=== PATIENT | male | born 1990 | race Two or more races ===

== ENCOUNTER 2020-05-17 14:57 | Outpatient (CLI) | payer OTHER ==
--- NOTE | 2020-05-17 16:07 | SLEEP CARE CONSULTATION ---
Information from patient questionnaire entered by Fior Fraire. I have reviewed and concur with the information entered by Fior Fraire. This document represents the service I personally performed and the decisions made by me, America Monsalve ARNP. History of Present Illness Service Date and Time: 05/17/2020 0870 Reason for Visit: New patient Chief Complaint: reports: Unrefreshed sleep, Snoring, Excessive daytime sleepiness, Observed pauses in breathing, Fatigue, Other (headaches when waking up) Date of Onset: 2.5 years Usual bedtime: Depends on work schedule Time it takes to fall asleep: 5-10 min Snores at night: Yes Observed to quit breathing while asleep: Yes Sleeps alone due to snoring: Yes Number of times waking at night: 5 times or more per week Reasons for waking at night: reports: Snoring, Other (lack of air; he has to sleep with a fan blowing on his face) Toss, Turn, or Twitch while sleeping: Yes Recalls having dreams: Yes Usually gets out of bed at: 0630 if on regular schedule Feels refreshed in the morning: No Morning headache: Yes (5 times a week or more, lasting about an hour) Sleepy or fatigued during the day: Yes Ever fallen asleep while driving: No Takes day naps: Yes (daily) Dreams during day naps: Yes Prior sleep studies: No Additional HPI information: I had the pleasure of seeing ZAN LANGLEY today regarding the possibility of him having a sleep disorder. His current complaints are snoring, pauses in breathing at night, unrefreshed sleep, daytime sleepiness, fatigue and headaches when waking up. He has been told he has a really loud snore by others on ship. He has been told the snore is getting loud and that he had had some pauses in breathing. His has noted these things too. In the last year there has been more incidences of getting up many times during the night. He is waking up with headaches and is not feeling rested. He would like to take a nap in early mornings. He is on a rotating schedule right now with his position. He has to get a nap during the day or he cannot function. He sometimes feels some restlessness in his legs and whole body too. He feels he has to move if he stays still too long. 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 Patient is and lives in [place]. Have you smoked in the past 12 months: No Alcohol use: No Caffeine use: Yes Caffeine amount and frequency: Daily Family History Family history of sleep disordered breathing: No Allergies and Home Medications Drug allergies reviewed: Yes (NKDA) Home medication list reviewed: Yes Allergy and home medication list: Omeprazole Review of Systems Weight gain over past 5 years: 39 Cardiovascular: reports: high blood pressure Gastrointestinal: reports: heartburn Neurological: reports: headaches Psychiatric: denies: anxiety, depression Ear/Nose/Throat: reports: nasal congestion. denies: sinus problems, dry mouth/throat, tonsillectomy, wisdom teeth removed (never grew wisdom teeth in) Endocrine: reports: sluggishness (tired) Immunologic: denies: allergies to food or environment Physical Exam Blood Pressure: 128/88 Cuff size: wrist Heart Rate: 96 O2 Saturation: 98 Height: 5 ft 10 in Weight: 209 lb Body Mass Index: 29.9 BMI Classification: Overweight Neck circumference: 16.5 (inches) Nostrils: partially obstructed Mouth and throat: narrow oropharynx Soft palate: long Uvula: normal Uvula visualization: 50% Mallampati Class II Tongue: enlarged in size with teeth bragg on lateral edges Tonsils: 2+ Chin and jaw: normal size and position Neck: normal w/o lymphadenopathy or thyromegaly Heart: regular rate and rhythm Lungs: clear bilaterally Impression and Plan 1. Suspected Obstructive Sleep Apnea-Hypopnea Syndrome, as suggested by a history of loud and irregular snoring, observed cessation of breath while asleep, morning headache, frequent awakening during the night, unrefreshed sleep, cognitive impairment, and excessive daytime sleepiness. Narrow oropharynx and obesity are common predisposing factors for obstructive sleep apnea-hypopnea syndrome. I recommend proceeding to polysomnography to confirm the diagnosis and to assess severity. If the patient has significant sleep disordered breathing, a manual CPAP titration study will also be performed to find the optimal treatment pressure. I informed the patient of what the sleep studies involve and after some discussion, obtained agreement to proceed. The pathophysiology of obstructive sleep apnea-hypopnea syndrome was discussed with the patient and health risks of cardiovascular and cerebrovascular disease if not treated. Risks of drowsy driving discussed in detail and patient advised to avoid long distance driving and to felt puller at the first sign of drowsiness. Patient agreed to plan. * Schedule polysomnography +- manual CPAP titration study and return in 1-2 weeks after the study to discuss result and initiate therapy. * Avoid long distance driving or driving when feeling sleepy. * Avoid alcohol, sedative and muscle relaxant around bedtime. * Attempt to lose weight. * Review instructions provided by trained office staff on how to prepare for the sleep study. * Return for follow-up after sleep study completed. Counseling Topics: Weight loss health impact Visit Type: In Office Time Spent with Patient (minutes): 30 Provider Statement: I spent 100% of the Face to Face Visit with the patient with greater than 50% spent counseling the patient and coordination of care.
[2020-05-17 16:08] VITALS: BP 128/88
== END 2020-05-17 14:58 | disposition home or self-care (01) ==
LOC: SC 14:57
PROVIDERS: ATTEND Nurse Practitioner Family
DX: G47.10 Hypersomnia, unspecified (principal); R51.9 Headache, unspecified; R06.83 Snoring; G47.8 Other sleep disorders; R06.81 Apnea, not elsewhere classified; E66.3 Overweight; Z68.29 Body mass index [BMI] 29.0-29.9, adult; R41.89 Other symptoms and signs involving cognitive functions and awareness
CPT/HCPCS: 99203; 99212

== ENCOUNTER 2020-06-10 09:21 | Outpatient (CLI) | payer OTHER | END 2020-06-10 09:22 | disposition home or self-care (01) | LOC: SC 09:21 | PROVIDERS: ATTEND Nurse Practitioner Family | DX: G47.33 Obstructive sleep apnea (adult) (pediatric) (principal); R09.02 Hypoxemia; E66.9 Obesity, unspecified; Z68.30 Body mass index [BMI] 30.0-30.9, adult | CPT/HCPCS: 95806 ==

== ENCOUNTER 2020-06-30 07:53 | Outpatient (CLI) | payer OTHER ==
--- NOTE | 2020-06-30 08:42 | SLEEP CARE CONSULTATION ---
Information from patient questionnaire entered by Loli Vincent. I have reviewed and concur with the information entered by Loli Vincent. This document represents the service I personally performed and the decisions made by , America Monsalve ARNP. History of Present Illness Service Date and Time: 06/30/2020 0753 Initial [place] Sleepiness Scale score: 13 (in 2020) Current [place] Sleepiness Scale score: 10 Additional HPI information: ZAN LANGLEY returns for follow up and results of the recently performed home sleep study. I explained the pathophysiology behind obstructive sleep apnea. We then spent quite a bit of time discussing different treatment options. For mild obstructive sleep apnea, surgery and oral appliance are alternatives to nasal CPAP therapy but in moderate or severe cases, nasal CPAP is the most effective and reliable treatment. Because apnea is primarily in supine position, then positional management therapy could be effective. Methods discussed such as positioning with pillows, using a T-shirt with tennis balls in the back, and shown commercial products that have a pillow format on back to prevent supine sleep. I reviewed the impact of weight changes on sleep apnea and strongly recommended losing weight. After some discussion, the patient opted to go with the nasal CPAP therapy. Nasal autoCPAP set at 4-15 cmH20 will be ordered with rationale explained. A manual titration study will be ordered if unable to find optimal pressure with office adjustments. I explained how CPAP machine works with sample devices Respironics Dreamstation and [employer]iversity [id number] and what to expect when using the machine. Using CPAP every night in order to get used to it was emphasized. Patient advised to put CPAP mask on before getting into bed so as not to fall asleep without CPAP. To assist acclimation to CPAP use, it could also be used for a short time during day while reading or watching TV. The patient was instructed to call the CPAP supplier to discuss any mechanical problem that may occur. If the mask given is uncomfortable or is difficult to keep on through the night even with adjustment, contact the CPAP supplier as many will replace with another mask style if notified before 30 days. If snoring or perceives is not getting enough air or too much air from the machine, notify this office. [facility] patient education PAP tips reviewed and given to patient. Patient counseled not drink alcohol less than 4 hours before bedtime as it can increase snoring and apnea. Patient was cautioned about risks of drowsy driving until sleepiness symptoms resolve. Sleep Study - Results Type of Sleep Study: Home sleep study Prior sleep studies: No Polysomnography/Home Sleep Study results: Physician Impression: The quality of the study is good. The length of the study is adequate (> 240 minutes). Please also see the tabulated and graphic data. 1. Obstructive Sleep Apnea-Hypopnea (ICD-10 G47.33), severe, with an AHI of 33.8 /hr and sandro SaO2 of 72%. During the study, the patient had 126 apneas (126 obstructive, 0 central, 0 mixed) and 110 hypopneas. The longest episode lasted 58.5 seconds. The respiratory events occurred more frequently during supine sleep (supine AHI was 55.3 and non-supine, 29.80). 2. Hypoxemia (ICD-10 R09.02), moderate, with the lowest oxygen saturation of 72 % and 40.7 minutes with SaO2 under 90%. Baseline oxygen saturation was normal (Average oxygen saturation was 94%). Allergies and Home Medications Home medication list reviewed: Yes (no new meds) Review of Systems Review of systems same as previous: Yes (no changes) Physical Exam Heart Rate: 73 O2 Saturation: 98 Height: 5 ft 10 in Weight: 209 lb Body Mass Index: 29.9 BMI Classification: Overweight Impression and Plan 1. Obstructive Sleep Apnea-Hypopnea Syndrome, severe, with lowest oxygen saturation of 72%. Obviously this is the cause of the patients symptoms of unrefreshed sleep, and excessive daytime sleepiness. Positive pressure therapy could benefit gastric reflux. As mentioned above, the patient will be started on nasal autoCPAP therapy with pressure set at 4-15 cmH2O. A manual titration study will be completed if unable to find optimal treatment pressure with office adjustments. Compliance guidelines also reviewed. A copy of compliance guidelines will be given for reference at check out. Because the apnea is more severe supine, I instructed to avoid sleeping supine using pillow positioning until able to start CPAP use. * Nasal auto CPAP therapy, pressure at 4-15 cm H2O. * Attempt to lose weight. * Avoid alcohol consumption near bedtime. * Avoid supine sleep until using CPAP. * The patient is again cautioned about driving until sleepiness completely resolves. * Return one month after CPAP obtained. I will assess response to therapy and compliance at that time. Counseling Topics: Weight loss health impact Visit Type: In Office Time Spent with Patient (minutes): 20 Provider Statement: I spent 100% of the Face to Face Visit with the patient with greater than 50% spent counseling the patient and coordination of care.
== END 2020-06-30 07:54 | disposition home or self-care (01) ==
LOC: SC 07:53
PROVIDERS: ATTEND Nurse Practitioner Family
DX: G47.33 Obstructive sleep apnea (adult) (pediatric) (principal); E66.3 Overweight; Z68.29 Body mass index [BMI] 29.0-29.9, adult
CPT/HCPCS: 99212; 99213

== ENCOUNTER 2020-08-23 07:57 | Outpatient (CLI) | payer OTHER ==
--- NOTE | 2020-08-23 08:40 | SLEEP CARE CONSULTATION ---
Information from patient questionnaire entered by Loli Vincent. I have reviewed and concur with the information entered by Loli Vincent. This document represents the service I personally performed and the decisions made by , America Monsalve ARNP. History of Present Illness Service Date and Time: 08/23/2020 0757 Previous diagnosis: Severe, Obstructive Sleep Apnea-Hypopnea Syndrome AHI: 33.8 (in 2020) Reason for follow up: first compliance Equipment type: CPAP Equipment obtained from: [employer] (got initial supplies) Mask style: Nasal Mask brand: Resmed (N20) Backup mask available: No (will keep old mask when replaced) Last cushion change: 2 weeks Prior sleep studies: Yes Year and Where: 2020 - [facility] Type of Sleep Study: Home sleep study HPI additional information: ZAN LANGLEY was diagnosed to have severe, AHI 33.8, obstructive sleep apnea-hypopnea syndrome and returned today for CPAP therapy first compliance follow-up. CPAP Compliance Data - Data Reviewed with Patient Average duration of nightly device use: 4 hr 45 min Compliance rate %: 67 (70 for initial 30 days) Current pressure setting (cmH2O): 4-15 (median 6.6, avg 9.9, max 11.4) Humidity settin Average residual AHI: 0.9 Subjective Missed days of use due to: reports: mask issues (changed from full mask to nasal congestion), illness Patient concerns: reports: nasal congestion (due to allergies). denies: aerophagia, mask discomfort, air blowing in eyes, mask leak noise, condensation in mask/hose, dry mouth, nose, throat, epistaxis, other Observed to snore while using device: No Current pressure setting perceived as: comfortable On therapy, patient: reports: sleeping better, awakening more refreshed, being more awake and alert during the day, more rested overall. denies: drowsiness while driving Initial [place] Sleepiness Scale score: 13 (in 2020) Current [place] Sleepiness Scale score: 7 Allergies and Home Medications Home medication list reviewed: Yes (no new meds) Review of Systems Review of systems same as previous: Yes (no changes) Physical Exam Heart Rate: 80 O2 Saturation: 99 Height: 5 ft 10 in Weight: 210 lb Body Mass Index: 30.1 BMI Classification: Obese Impression and Plan 1. Obstructive Sleep Apnea-Hypopnea Syndrome, severe, with fair treatment compliance and excellent apnea control. On CPAP therapy, the patient has better sleep quality and is more rested overall. He started with a full face mask but it felt very suffocating to him and he changed to a nasal cushion ResMed N20 which he find comfortable. He states he is very satisfied because his schedule for work varies and he is unable to get more than 4-5 hours of sleep and with using the CPAP he is not waking up feeling like he has had quality sleep and is rested. He had a few nights that were difficult due to nasal congestion from his allergies. Nasal congestion can be reduced with increasing the CPAP humidity. The heated hose can be adjusted higher if condensation with higher humidity setting. Saline nasal spray found OTC can be used prior to CPAP to clear nasal secretions and wash off any nasal allergens to facilitate nasal breathing. In addition, a steamy shower before bed will often assist nasal drainage. He voiced understanding and agreement with plan of care. Patient's apnea severity and rationale for treatment to reduce apnea, improve sleep quality and reduce cardiovascular and cerebrovascular events was reviewed. I also reviewed the benefit of consistent device use of CPAP for gastric reflux. * Change auto CPAP pressure to 7-11 cmH2O * Notify me if snoring with mask or feeling that the pressure is too much or too little * Attempt to lose weight * Call this office if any problems using CPAP * Return for follow up in 1-2 months, or sooner if concerns arise Counseling Topics: Spare mask, Weight loss health impact Visit Type: In Office Time Spent with Patient (minutes): 22 Provider Statement: I spent 100% of the Face to Face Visit with the patient with greater than 50% spent counseling the patient and coordination of care.
== END 2020-08-23 07:58 | disposition home or self-care (01) ==
LOC: SC 07:57
PROVIDERS: ATTEND Nurse Practitioner Family
DX: G47.33 Obstructive sleep apnea (adult) (pediatric) (principal); E66.9 Obesity, unspecified; Z68.30 Body mass index [BMI] 30.0-30.9, adult
CPT/HCPCS: 99212; 99213

== ENCOUNTER 2020-10-26 16:38 | Outpatient (CLI) | payer OTHER ==
--- NOTE | 2020-10-26 17:06 | SLEEP CARE CONSULTATION ---
Information from patient questionnaire entered by Fior Fraire. I have reviewed and concur with the information entered by Fior Fraire. This document represents the service I personally performed and the decisions made by , America Monsalve ARNP. History of Present Illness Service Date and Time: 10/26/2020 1638 Previous diagnosis: Severe, Obstructive Sleep Apnea-Hypopnea Syndrome AHI: 33.8 Reason for follow up: other (2-month followup - pressure change) Equipment type: CPAP Equipment obtained from: [employer] (getting supplies as needed) Mask style: Nasal (N30i) Mask brand: Resmed Backup mask available: No (will keep old mask when replaced) Last cushion change: 2 weeks Prior sleep studies: Yes Year and Where: 2020 - [facility] Type of Sleep Study: Home sleep study HPI additional information: ZAN LANGLEY was diagnosed to have severe, AHI 33.8, obstructive sleep apnea-hypopnea syndrome and returned today for CPAP therapy 2 month pressure change follow-up. CPAP Compliance Data - Data Reviewed with Patient Average duration of nightly device use: 6 h 40 min Compliance rate %: 90 Current pressure setting (cmH2O): 7-12 Average residual AHI: 0.9 Subjective Missed days of use due to: reports: travel Patient concerns: reports: condensation in mask/hose. denies: aerophagia, mask discomfort, air blowing in eyes, mask leak noise, nasal congestion, dry mouth, nose, throat, epistaxis, other Observed to snore while using device: No Current pressure setting perceived as: comfortable On therapy, patient: reports: sleeping better, awakening more refreshed, being more awake and alert during the day, more rested overall. denies: drowsiness while driving Initial [place] Sleepiness Scale score: 13 (in 2020) Current [place] Sleepiness Scale score: 8 Allergies and Home Medications Home medication list reviewed: Yes (no changes) Review of Systems Review of systems same as previous: No (cyst in forearm, going to have removed in Nov) Physical Exam Heart Rate: 99 O2 Saturation: 98 Height: 5 ft 10 in Weight: 218 lb Body Mass Index: 31.2 BMI Classification: Obese Impression and Plan 1. Obstructive Sleep Apnea-Hypopnea Syndrome, severe, with good treatment co mpliance and excellent apnea control. On CPAP therapy, the patient has better sleep quality and is more rested overall. Patient is very satisfied with pressure change and results from controlling his apnea. He is getting some condensation in the tubing. He has changed from the heated hose to the regular hose and it reduced for a while, but now is getting some condensation. I advised him to change back to the heated hose, increase its setting and increase humidity if needed, if he becomes dry. He voiced understanding and agreement. I will not change his pressure settings today. Patient's apnea severity and rationale for treatment to reduce apnea, improve sleep quality and reduce cardiovascular and cerebrovascular events was reviewed. I also reviewed the benefit of consistent device use of CPAP for gastric reflux. * Continue auto CPAP pressure at 7-12 cmH2O * Notify me if snoring with mask or feeling that the pressure is too much or too little * Attempt to lose weight * Call this office if any problems using CPAP * Return for follow up in 3 months, or sooner if concerns arise Counseling Topics: Spare mask, Weight loss health impact Visit Type: In Office Time Spent with Patient (minutes): 12 Provider Statement: I spent 100% of the Face to Face Visit with the patient with greater than 50% spent counseling the patient and coordination of care.
== END 2020-10-26 16:39 | disposition home or self-care (01) ==
LOC: SC 16:38
PROVIDERS: ATTEND Nurse Practitioner Family
DX: G47.33 Obstructive sleep apnea (adult) (pediatric) (principal); E66.9 Obesity, unspecified; Z68.31 Body mass index [BMI] 31.0-31.9, adult
CPT/HCPCS: 99212

== ENCOUNTER 2021-01-17 21:31 | Emergency (ER) | payer OTHER ==
--- NOTE | 2021-01-17 22:11 | ED Physician Documentation ---
PD HPI UPPER EXT INJURY - Stated complaint Stated Complaint: R HAND INJ - Chief complaint Chief Complaint: Ext Problem - History obtained from History obtained from: Patient - History of Present Illness Location: Right Type of injury: Fall Where injury occurred: Work Timing - onset: Enter time (20:45), Today Timing - details: Abrupt onset Pain level now: 4 Improved by: Rest Worsened by: Moving, Palpating Associated symptoms: Swelling. No: Weakness, Numbness Contributing factors: No: Anticoagulated Similar symptoms before: Has not had sx before - Additonal information Additional information: patient is right hand dominant. At work tonight, at approximately 8:45 PM, he slipped and fell onto concrete surface, sustained injury to right hand. He is right hand dominant. Review of Systems Skin: denies: Abrasion (s), Laceration (s) Musculoskeletal: reports: Extremity pain, Extremity swelling Neurologic: denies: Focal weakness, Numbness, Head injury PD PAST MEDICAL HISTORY - Past Medical History Past Medical History: Yes Derm: Other Other Past Medical History: acne - Past Surgical History Past Surgical History: No - Present Medications Home Medications: Ambulatory Orders Medication Instructions Recorded Confirmed Doxycycline Hyclate 100 mg PO DAILY 01/17/21 01/17/21 HYDROcod/ACETAM 5/325 [[place] 5/325] 1 - 2 tablet PO Q6H PRN #14 tablet 01/17/21 - Allergies Allergies/Adverse Reactions: Allergies Allergy/AdvReac Type Severity Reaction Status Date / Time No Known Drug Allergies Allergy Verified 01/17/21 21:44 - Social History Does the pt smoke?: No Smoking Status: Never smoker Does the pt drink ETOH?: No Does the pt have substance abuse?: No - Immunizations Immunizations are current?: Yes PD ED PE NORMAL - Vitals Vital signs reviewed: Yes - General General: Alert and oriented X 3, No acute distress, Well developed/nourished - Derm Derm: Normal color, Warm and dry - Neuro Neuro: No motor deficit, No sensory deficit PD ED PE EXPANDED - Extremities Extremities: Deformity, Tenderness, Limited ROM YODIT UE/Hands Visual: 1 - swelling, deformity, tenderness Results - Vitals Vitals: Oxygen O2 Source Room air - Rads (name of study) right hand xrays Radiology: Prelim report reviewed, See rad report Procedures - Splint (location) Upper extremity right Splint applied by: Physician, Isaac Type of splint: Fiberglass, Ulnar gutter Other: Patient tolerated well, No complications, Neurovascular intact, Good alignment, Sling provided PD MEDICAL DECISION MAKING - ED course Complexity details: considered differential, d/w patient ED course: fracture of right fifth metacarpal on xray. splint placed after linear traction for reduction. Patient declined local anesthestic (such as hematoma block). I nstructed to follow up with orthopedic surgeon. Prescription for oxycodone submitted to [facility] pharmacy.I reviewed previous information available to me on this patient (no CLAIR form) and there are no red flags that would suggest need to avoid or limit opiate prescription for this painful injury. Departure - Departure Disposition: 01 Home, Self Care Clinical Impression: Boxer's fracture Qualifiers: Encounter type: initial encounter Fracture type: closed Qualified Code(s): S62.339A - Displaced fracture of neck of unspecified metacarpal bone, initial encounter for closed fracture Condition: Good Instructions: ED Fx Boxer, ED Cast Care Fiberglass Follow-Up: Jack Dee MD [Provider Admit Priv/Credential] - JOSÉ SIMEON MD [Primary Care Provider] - Prescriptions: HYDROcod/ACETAM 5/325 [[place] 5/325] 1 - 2 tablet PO Q6H PRN #14 tablet PRN Reason: Pain Comments: Follow up with orthopedic surgery in 5-7 days. A prescription for hydrocodone with acetaminophen has been electronically submitted to [facility] pharmacy in [place] Discharge Date/Time: 01/17/21 23:57
[2021-01-17] MEDS ORDERED: LIDOCAINE 1% 2 ML VIAL SUBQ STA (22:39)
--- NOTE | 2021-01-17 22:49 | XRAY Report ---
PROCEDURE: Hand 3 View RT INDICATIONS: injury, tenderness TECHNIQUE: 3 views of the hand(s) acquired. COMPARISON: None FINDINGS: Bones: Mildly comminuted, displaced fracture involving the head of the right fifth metacarpal. There is full or angulation of the distal fracture fragment.. No suspicious bony lesions. Soft tissues: No suspicious soft tissue calcifications. Diffuse soft tissue swelling of the right h and. IMPRESSION: Minimally comminuted, displaced distal right fifth metacarpal head fracture. Reviewed by: Earl El MD on 01/17/2021 10:48 PM PDT Approved by: Earl El MD on 01/17/2021 10:48 PM PDT Station ID: [id number]
[2021-01-17] MEDS ORDERED: HYDROcod/ACET 5/325 Prepack 4 PO STA (23:31)
[2021-01-17 23:56] VITALS: BP 133/90
== END 2021-01-17 23:57 | disposition home or self-care (01) ==
LOC: ED 21:31
DX: S62.336A Displaced fracture of neck of fifth metacarpal bone, right hand, initial encounter for closed fracture (principal); W17.89XA Other fall from one level to another, initial encounter; Y99.0 Civilian activity done for income or pay
CPT/HCPCS: 29105

== ENCOUNTER 2021-01-24 07:39 | Outpatient (CLI) | payer OTHER ==
--- NOTE | 2021-01-24 15:50 | XRAY Report ---
PROCEDURE: Hand 3 View RT INDICATIONS: R HAND PX TECHNIQUE: 3 views of the hand(s) acquired. COMPARISON: Hand x-ray 01/17/2021 FINDINGS: Bones: Mildly displaced fifth metacarpal head fracture with angulation. Overall alignment is stable. No suspicious bony lesions. No appreciable interval sclerosis. Soft tissues: No suspicious soft tissue calcifications. IMPRESSION: Stable appearance of mildly angulated fifth metacarpal head fracture. Reviewed by: Sonia Lainez MD on 01/24/2021 3:49 PM [facility] Approved by: Sonia Lainez MD on 01/24/2021 3:49 PM [facility] Station ID: [id number]
== END 2021-01-24 23:59 | disposition home or self-care (01) ==
LOC: DI.N 07:39
PROVIDERS: ATTEND Orthopaedic Surgery
DX: S62.396A Other fracture of fifth metacarpal bone, right hand, initial encounter for closed fracture (principal)

== ENCOUNTER 2021-01-27 08:53 | Outpatient (CLI) | payer OTHER ==
--- NOTE | 2021-01-27 09:24 | SLEEP CARE CONSULTATION ---
Information from patient questionnaire entered by Fior Fraire. I have reviewed and concur with the information entered by Fior Fraire. This document represents the service I personally performed and the decisions made by , America Monsalve ARNP. History of Present Illness Service Date and Time: 01/27/2021 0853 Previous diagnosis: Severe, Obstructive Sleep Apnea-Hypopnea Syndrome AHI: 33.8 Reason for follow up: three month Equipment type: CPAP Equipment obtained from: [facility] (getting supplies as needed) Mask style: Nasal (N30i) Backup mask available: No (will need to keep old mask when replaced) Last cushion change: 2 weeks Prior sleep studies: Yes Year and Where: 2020 - [facility] Type of Sleep Study: Home sleep study HPI additional information: ZAN LANGLEY was diagnosed to have severe, AHI 33.8, obstructive sleep apnea-hypopnea syndrome and returned today for CPAP therapy three month follow- up. CPAP Compliance Data - Data Reviewed with Patient Average duration of nightly device use: 6 h 26 min Compliance rate %: 87 Current pressure setting (cmH2O): 7-12 Average residual AHI: 0.9 Central apnea: 0.4 Obstructive apnea: 0.3 Subjective Missed days of use due to: reports: family emergency Patient concerns: denies: aerophagia, mask discomfort, air blowing in eyes, mask leak noise, condensation in mask/hose, nasal congestion, dry mouth, nose, throat, epistaxis, other Observed to snore while using device: No Current pressure setting perceived as: comfortable On therapy, patient: reports: sleeping better, awakening more refreshed, being more awake and alert during the day, more rested overall. denies: drowsiness while driving Initial [place] Sleepiness Scale score: 13 (in 2020) Current [place] Sleepiness Scale score: 6 Allergies and Home Medications Home medication list reviewed: Yes (doxycycline for acne) Review of Systems Review of systems same as previous: No (Broken hand- 1 week ago 01-17-21) Physical Exam Blood Pressure: 111/81 Cuff size: wrist Heart Rate: 79 O2 Saturation: 97 Height: 5 ft 10 in Weight: 212 lb Body Mass Index: 30.4 BMI Classification: Obese Impression and Plan 1. Obstructive Sleep Apnea-Hypopnea Syndrome, severe, with good treatment compliance and excellent apnea control. On CPAP therapy, the patient has better sleep quality and is more rested overall. Patient is very satisfied with current CPAP therapy and has significant improvement of his sleep apnea. He has no current issues or concerns with CPAP use. Patient was advised to keep the old mask set when he gets it replaced so that he can have a backup. He voiced understanding. Patient's apnea severity and rationale for treatment to reduce apnea, improve sleep quality and reduce cardiovascular and cerebrovascular events was reviewed. I also reviewed the benefit of consistent device use of CPAP for gastric reflux. I discussed weight loss with patient. He is finding it difficult to find time to exercise to help him lose weight. I encouraged him to try to make better food choices, selecting more nutritious foods and avoiding processed and packaged foods that are high in sugar and empty calories. He may also park his car out a little further so that he can increase walking distance when he is going to work or other places. He voiced understanding and agreement with this plan. * Continue auto CPAP pressure at 7-12 cmH2O * Notify me if snoring with mask or feeling that the pressure is too much or too little * Attempt to lose weight * Call this office if any problems using CPAP * Return for follow up in 6 months, or sooner if concerns arise Counseling Topics: Spare mask, Weight loss health impact Visit Type: In Office Time Spent with Patient (minutes): 20 Provider Statement: I spent 100% of the Face to Face Visit with the patient with greater than 50% spent counseling the patient and coordination of care.
[2021-01-27 09:25] VITALS: BP 111/81
== END 2021-01-27 08:54 | disposition home or self-care (01) ==
LOC: SC 08:53
PROVIDERS: ATTEND Nurse Practitioner Family
DX: G47.33 Obstructive sleep apnea (adult) (pediatric) (principal); E66.9 Obesity, unspecified; Z68.30 Body mass index [BMI] 30.0-30.9, adult
CPT/HCPCS: 99212; 99213